=== PATIENT | female | born 1985 | race Caucasian/White ===

== ENCOUNTER 2018-03-15 08:40 | Emergency (ER) | payer OTHER ==
[~2018-03-15] VITALS: Ht 157.5 cm; Wt 75.7 kg
[2018-03-15 08:46] VITALS: BP 132/81; Ht 157.5 cm; Wt 75.7 kg
== END 2018-03-15 10:05 | disposition home or self-care (01) ==
LOC: ED 08:40
DX: L23.2 Allergic contact dermatitis due to cosmetics (principal)

== ENCOUNTER 2019-02-20 11:03 | Emergency (ER) | payer OTHER ==
[~2019-02-20] VITALS: Ht 157.5 cm; Wt 74.4 kg
[2019-02-20 11:39] VITALS: Ht 157.5 cm; Wt 74.4 kg
[2019-02-20 12:05] LABS: BASOPHIL % 0.6 % (0-2); PLATELET COUNT 248 x10^3mcL (130-400); RED CELL DISTRIBUTION WIDTH 13.2 % (11.5-14.5)
[2019-02-20 12:34] LABS: microscopic required? YES; urine erythrocyte 2+ (NEGATIVE)
[2019-02-20 14:17] VITALS: BP 110/63
== END 2019-02-20 14:23 | disposition home or self-care (01) ==
LOC: ED 11:03
DX: O20.0 Threatened abortion (principal)
CPT/HCPCS: 36415